=== PATIENT | female | born 1940 | race African-American/Black ===

== ENCOUNTER 2021-04-06 13:06 | Emergency (ER) | payer OTHER ==
[~2021-04-06] VITALS: Ht 157.5 cm; Wt 61.7 kg
--- NOTE | ~2021-04-06 | EMS ---
[address] [address] EMS Patient Care Report Name: MI FISHER Room #: DEP LIZBETH Watkins#: [id number] Admission: 04/06/21 Attend Phys: Discharge: 04/06/21 Date of : 44 Report #: [id number] THIS REPORT FOR: //name// Report Transmitted: 04/07/2021 08:36 EMS Care Summary [place], [place]/[facility] Incident [id number] @ 04/06/2021 12:26 Incident Location [facility] Patient MI FISHER Female, 80 Years 1940 Patient Address [address] [place], [place] [id number] Patient History None Reported, Patient Allergies No known allergies, Patient Medications None Reported, Chief Complaint neck pain Disposition Transported No Lights/[place] Dispatch Reason Sick Person Transported To [facility] Narrative patient is found sitting on a bed at the scene. staff states that the patient requested transport to the hospital due to neck pain. patient states that the pain is to the back of her neck and that she has been dealing with it for about [address] [address] EMS Patient Care Report Name: MI FISHER Room #: [facility]#: [id number] Admission: 04/06/21 Attend Phys: Discharge: 04/06/21 Date of : 44 Report #: [id number] a week. patient says that the pain is the worst that it has ever been. patient denies any trauma or injury to the area. patient has no other complaints at this time. Initial Vitals @12:55P: 98,R: 14,BP: 138/86,Pain: 6/10,GCS: 15,Revised Trauma: 12, Assessments @13:07MENTAL:No Abnormalities,SKIN:No Abnormalities,HEENT:Head/Face: No Abnormalities,Eyes: No Abnormalities,Neck/Airway: No Abnormalities,LUNG SOUNDS:General: No Abnormalities,Left Upper: No Abnormalities,Right Upper: No Abnormalities,Left Lower: No Abnormalities,Right Lower: No Abnormalities,ABDOMEN:General: No Abnormalities,Left Upper: No Abnormalities,Right Upper: No Abnormalities,Left Lower: No Abnormalities,Right Lower: No Abnormalities,PELVIS//GI:No Abnormalities,EXTREMITIES:Left Arm: No Abnormalities,Right Arm: No Abnormalities,Left Leg: No Abnormalities,Right Leg: No Abnormalities,PULSE:NEURO:No Abnormalities, Impression Pain (Non-Traumatic) Procedures @12:45ALS AssessmentResponse: UnchangedSucceeded@12:50StretcherResponse: Unchanged Timeline 12:24,Call Received 12:24,Dispatch Notified 12:26,Dispatched 12:27,En Route 12:42,On Scene 12:45,At Patient 12:45,ALS Assessment,Response: UnchangedSucceeded, 12:50,Stretcher,Response: Unchanged 12:55,BP: 138/86 M,PULSE: 98,RR: 14 R,SPO2: Ox,ETCO2: ,BG: ,PAIN: 6,GCS: 15, 12:57,Depart Scene 13:29,At Destination 13:30,Call Closed Disclaimer v1.1 Copyright 2020 [employer] This EMS Care Summary contains data elements from the applicable legal record (which may be displayed differently). It is designed to provide pertinent information for the following purposes: continuity of care, clinical quality, and state data reporting. The complete legal record is available to ED staff and administrators of the receiving hospital in [employer]'s Patient Tracker. All data [address] [address] EMS Patient Care Report Name: MI FISHER Room #: DEP LIZBETH Watkins#: [id number] Admission: 04/06/21 Attend Phys: Discharge: 04/06/21 Date of : 44 Report #: [id number] is provided "as is."
[2021-04-06] MEDS ORDERED: FENTANYL1 EAC1 TRANSDERM (13:45)
[2021-04-06] MEDS ORDERED: NORCO 10-325 T1 EACH PO (13:45)
[2021-04-06] MEDS ORDERED: GABAPENTIN 100100 MG PO (13:46)
[2021-04-06] MEDS ORDERED: METFORMIN HCL500 MG PO (13:46)
[2021-04-06] MEDS ORDERED: LOSARTAN POTAS100 MG PO (13:52)
[2021-04-06] MEDS ORDERED: NARCAN4 MG NARES (13:52)
[2021-04-06] MEDS ORDERED: NAPRELAN375 MG PO (16:06)
[2021-04-06 17:06] VITALS: BP 141/73
--- NOTE | 2021-04-06 17:25 | EKG ---
[place] [address] [employer] [facility] [place] [address] ELECTROCARDIOGRAM REPORT Name: MI FISHER [id number] Admission: 04/06/21 Attend Phys: Discharge: 04/06/21 Date of : 44 Report #: [id number] [facility] ED Test Date: 2021-04-06 Test Time: 13:16:49 Pat Name: MI FISHER Department: Room: Gender: F [employer]: : 1940 Requested By: Daniel Schroeder Order Number: [id number] MD: Anderson Carrizales Measurements Intervals [place] Rate: 91 P: 33 ND: 140 QRS: 7 QRSD: 79 T: 8 QT: 343 QTc: 423 Interpretive Statements Sinus rhythm Poor R wave progression No previous ECG available for comparison Electronically Signed On 04-06-2021 17:25:03 CDT by Anderson Carrizales [email or web address] <ELECTRONICALLY SIGNED> By: Anderson Carrizales MD, [facility] 04/06/21 1725 1316 1316 Anderson Carrizales MD, FACC /EPI
== END 2021-04-06 17:08 ==
LOC: ER 13:06
DX: M54.2 Cervicalgia (principal); Z79.891 Long term (current) use of opiate analgesic; Z79.84 Long term (current) use of oral hypoglycemic drugs; Z79.899 Other long term (current) drug therapy